=== PATIENT | male | born 1995 | race Caucasian/White ===

== ENCOUNTER 2022-03-09 05:32 | Emergency (ER) | payer BC ==
[~2022-03-09] VITALS: Ht 185.4 cm; Wt 74.8 kg
[2022-03-09] MEDS ORDERED: LORAZEPAM 1 MG TABLET PO ONE (06:30)
--- NOTE | 2022-03-09 06:34 | NUR ---
[facility] FROM A REHAB [facility]ACILITY [facility] ER BED 13. AAOX4. NOT IN RESP DISTRESS. ANXIOUS. PT BROUGHT IN FOR HAVING THE TWITCH. PT CANT STAY STILL AND KEEP MOVING AROUND. MD WAS AT THE BEDSIDE. ORDERS RECEIVED
[2022-03-09] MEDS ORDERED: LORAZEPAM 1 MG TABLET ONE (06:35)
--- NOTE | 2022-03-09 08:24 | NUR ---
Patient discharged to home in stable condition. Written and verbal after care instructions given. Patient verbalizes understanding of instruction.
[2022-03-09 08:50] VITALS: BP 124/76
== END 2022-03-09 08:50 | disposition home or self-care (01) ==
LOC: ER 05:34
DX: F41.9 Anxiety disorder, unspecified (principal); Z88.8 Allergy status to other drugs, medicaments and biological substances
CPT/HCPCS: 71045-TC

== ENCOUNTER 2022-03-10 19:10 | Emergency (ER) | payer BC ==
[~2022-03-10] VITALS: Ht 182.9 cm; Wt 74.8 kg
[2022-03-10 19:36] VITALS: BP 157/97
--- NOTE | 2022-03-10 19:36 | NUR ---
[id number] FROM THE [facility] C/O WITHDRAWALS FROM ATIVAN, RESTLESS. PT A/OX4. TOLERATING R/A WELL WITH NO RESP DISTRESS. SAFETY MEASURES IN PLACE
[2022-03-10] MEDS ORDERED: LORAZEPAM 1 MG TABLET ONE ×2 (19:46→19:50)
--- NOTE | 2022-03-10 19:49 | NUR ---
MOTHER [phone]
--- NOTE | 2022-03-10 19:55 | NUR ---
ORDERED 2MG ATIVAN PO, ONLY 1MG AVAILABLE IN ER. OBTAINED 1MG ATIVAN PO FROM [facility]. 2 RN WITNESSED.
[2022-03-10] MEDS ORDERED: LORAZEPAM 1 MG TABLET PO ONE (20:00)
--- NOTE | 2022-03-10 20:19 | NUR ---
UNABLE TO PROVIDE URINE AT THIS TIME
--- NOTE | 2022-03-10 20:50 | NUR ---
PT REFUSED BLOOD DRAW
[2022-03-10 21:37] LABS: BASOPHILS # (AUTO) 0.1 K/uL (0.0-0.2); BASOPHILS % (AUTO) 0.7 % (0.0-2.0); EOSINOPHILS % (AUTO) 2.8 % (0.0-6.0); HEMATOCRIT 42 % (39-51); HEMOGLOBIN 13.5 g/dL (13.5-17.5); MEAN CORPUSCULAR HGB CONC 32 g/dl (31.0-36.0); MEAN CORPUSCULAR VOLUME 82 fL (80-96); MONOCYTES # (AUTO) 0.9 K/uL (0.1-1.30); MONOCYTES % (AUTO) 9.5 % (2.0-12.0); NEUTROPHILS # (AUTO) 5.5 K/uL (1.8-8.9); PLATELET COUNT (AUTO) 218 K/uL (150-450); RED BLOOD CELL COUNT(AUTO) 5.11 MIL/uL (4.5-6.0); WHITE BLOOD COUNT (AUTO) 9.8 K/uL (4.3-11.0)
[2022-03-10 21:39] LABS: BILIRUBIN,URINE NEGATIVE (NEGATIVE); COLOR,URINE YELLOW (YELLOW); LEUKOCYTE ESTERASE ,URINE NEGATIVE (NEGATIVE); NITRITE, URINE NEGATIVE (NEGATIVE); PROTEIN,URINE NEGATIVE (NEGATIVE); UGLUCOSE NEGATIVE (NEGATIVE); UROBILINOGEN,URINE 0.2 EU/dL (0.2)
--- NOTE | 2022-03-10 21:42 | NUR ---
BLOOD COLLECTED AND SENT TO LAB
--- NOTE | 2022-03-10 21:42 | NUR ---
URINE COLLECTED AND SENT TO LAB
[2022-03-10 21:48] LABS: CARBON DIOXIDE 26 mmol/L (21-32); CHLORIDE 102 mmol/L (98-107); CREATININE 0.9 mg/dL (0.6-1.3); GLUCOSE 86 mg/dL (74-106); POTASSIUM 4.1 mmol/L (3.5-5.1); SODIUM SERUM 138 mmol/L (136-145); UREA NITROGEN, BLOOD 20 mg/dL (7-18)
[2022-03-10 21:53] LABS: ALANINE AMINOTRANSFERASE 64 U/L (12-78); ALBUMIN 4.4 g/dL (3.4-5.0); ALCOHOL, BLOOD < 3 mg/dL (0-0); ALKALINE PHOSPHATASE 76 U/L (46-116); ASPARTATE AMINOTRANSFERASE 49 U/L (15-37); BILIRUBIN,DIRECT 0.1 mg/dL (0.0-0.2); BILIRUBIN,TOTAL 0.4 mg/dL (0.2-1.0)
[2022-03-10 21:54] LABS: ACETAMINOPHEN 0 ug/ml (10-30)
--- NOTE | 2022-03-10 23:01 | NUR ---
PER LAB, COVID ANTIGEN SWAB RECIEVED
--- NOTE | 2022-03-10 23:03 | NUR ---
RAFFI URBAN AT PT'S BEDSIDE FOR EVAL
--- NOTE | 2022-03-11 00:50 | NUR ---
Patient discharged to home in stable condition. Written and verbal after care instructions given. Patient verbalizes understanding of instruction.
== END 2022-03-11 00:50 | disposition home or self-care (01) ==
LOC: ER 19:15
DX: F41.9 Anxiety disorder, unspecified (principal); F84.0 Autistic disorder; I10 Essential (primary) hypertension; F13.20 Sedative, hypnotic or anxiolytic dependence, uncomplicated; F19.10 Other psychoactive substance abuse, uncomplicated; Z20.822 Contact with and (suspected) exposure to COVID-19
CPT/HCPCS: 99283; 85025; 80048; 80076; 81003; 36415; 87426; 80143; 80320; 80307; C9803; G0480

== ENCOUNTER 2023-08-06 08:51 | Emergency (ER) | payer BC, OTHER ==
[~2023-08-06] VITALS: Ht 182.9 cm; Wt 61.2 kg
[2023-08-06 08:57] VITALS: TEMP 98.2
[2023-08-06] MEDS ORDERED: IBUP-1955 PO (09:29)
[2023-08-06 10:00] VITALS: BP 136/84; O2SAT 97
== END 2023-08-06 10:01 ==
LOC: ER 08:55
DX: S00.81XA Abrasion of other part of head, initial encounter (principal); S60.511A Abrasion of right hand, initial encounter; R07.89 Other chest pain; I10 Essential (primary) hypertension; F41.9 Anxiety disorder, unspecified; Z88.8 Allergy status to other drugs, medicaments and biological substances; Y04.2XXA Assault by strike against or bumped into by another person, initial encounter; Y93.89 Activity, other specified; Y92.89 Other specified places as the place of occurrence of the external cause; Y99.8 Other external cause status
CPT/HCPCS: 71100-TC